=== PATIENT | female | born 1975 | race Two or more races ===

== ENCOUNTER 2025-01-08 13:13 | Inpatient (IN) | payer MEDICAID, OTHER ==
[~2025-01-08] VITALS: Ht 154.9 cm; Wt 68.0 kg
[2025-01-08] MEDS ORDERED: MAGNESIUM SULFATE/D5W 200 ML ONE (13:20)
[2025-01-08 13:44] LABS: PLATELET COUNT (AUTO) 323 K/uL (179-408); RED BLOOD CELL COUNT(AUTO) 4.35 MIL/uL (3.63-4.92); RED CELL DISTRIBUTION WIDTH 20.4 % (12.3-17.7); WHITE BLOOD COUNT (AUTO) 5.5 K/uL (3.8-11.8)
[2025-01-08] MEDS: MAGNESIUM SULFATE 2 GM in IV DEXTROSE 5% 100 ML IV ONE (13:44)
[2025-01-08 13:55] LABS: ASPARTATE AMINOTRANSFERASE 30 U/L (15-37); CREATININE 0.5 mg/dL (0.6-1.3); SODIUM SERUM 144 mmol/L (136-145); TOTAL PROTEIN, SERUM 6.9 g/dL (6.4-8.2); UREA NITROGEN, BLOOD 8 mg/dL (7-18)
[2025-01-08] MEDS: ALBUTEROL SULFATE 2.5 MG/3 ML NEBU NEB ONE (14:04)
[2025-01-08] MEDS: IPRATROPIUM BROMIDE 0.5 MG/2.5 ML NEBU NEB ONE (14:04)
[2025-01-08 14:05] VITALS: O2SAT 99
[2025-01-08] MEDS ORDERED: ALBUTEROL SULFATE 2.5 MG/3 ML NEBU ONE ×2 (14:06→19:30)
[2025-01-08] MEDS ORDERED: IPRATROPIUM BROMIDE 0.5 MG/2.5 ML NEBU ONE ×2 (14:06→19:30)
[2025-01-08 14:20] VITALS: O2SAT 100
[2025-01-08 14:21] LABS: BASOPHILS % (MANUAL) 1 % (0-2); EOSINOPHILS % (MANUAL) 14 % (0-8); LYMPHOCYTES % (MANUAL) 19 % (20-40); MONOCYTES % (MANUAL) 9 % (2-10); NEUTROPHILS % (MANUAL) 56 % (42-75); PLATELET ESTIMATE ADEQUATE
[2025-01-08] MEDS ORDERED: MAGNESIUM HYDROXIDE 30 ML LIQUID UDC PO PRN ×2 (15:15→20:00)
[2025-01-08] MEDS ORDERED: ONDANSETRON 4 MG/2 ML VIAL IV PRN ×2 (15:15→20:00)
[2025-01-08] MEDS ORDERED: ACETAMINOPHEN 325 MG TABLET PO PRN ×2 (15:15→20:00)
[2025-01-08 15:38] LABS: IRON, SERUM 19 ug/dL (50-175)
[2025-01-08] MEDS ORDERED: FLUT1DIS28 INH (15:40)
[2025-01-08] MEDS ORDERED: ALBU2.5V38 NEB (15:40)
[2025-01-08] MEDS ORDERED: PROM118S5 PO (15:41)
[2025-01-08] MEDS ORDERED: ALBU18HF2 IH (15:42)
[2025-01-08] MEDS ORDERED: LORA-656 PO (15:43)
[2025-01-08] MEDS ORDERED: TRIA15CR4 TOP (15:43)
[2025-01-08 19:00] VITALS: BP 155/94
[2025-01-08] MEDS: IPRATROPIUM BROMIDE 0.5 MG/2.5 ML NEBU NEB SCH ×2 (19:30→20:00)
[2025-01-08 19:31] VITALS: O2SAT 97
[2025-01-08] MEDS: ALBUTEROL SULFATE 2.5 MG/ 0.5 ML NEBU NEB SCH ×2 (19:31→20:00)
[2025-01-08 19:46] VITALS: O2SAT 100
[2025-01-08 21:04] VITALS: BP 130/72; TEMP 97.7; O2SAT 92
[2025-01-09] VITALS (15 sets, daily range): BP systolic 125–141; BP diastolic 63–78; TEMP 97.6–98.3; O2SAT 94–100
[2025-01-09] MEDS ORDERED: ACETAMINOPHEN 325 MG TABLET PO PRN (00:15)
[2025-01-09 06:38] LABS: PLATELET COUNT (AUTO) 325 K/uL (179-408); RED BLOOD CELL COUNT(AUTO) 4.32 MIL/uL (3.63-4.92); RED CELL DISTRIBUTION WIDTH 20.8 % (12.3-17.7); WHITE BLOOD COUNT (AUTO) 6.2 K/uL (3.8-11.8)
[2025-01-09 07:25] LABS: CREATININE 0.5 mg/dL (0.6-1.3); SODIUM SERUM 141 mmol/L (136-145); UREA NITROGEN, BLOOD 10 mg/dL (7-18)
[2025-01-09] MEDS: LORATADINE 10 MG TABLET PO SCH (09:36)
[2025-01-09] MEDS: GUAIFENESIN/DEXTROMETHORPHAN 5 ML UDC PO PRN (12:56)
[2025-01-09] MEDS: SOD FERRIC GLUC COMPLX/SUCROSE 125 MG in IV NORMAL SALINE 100 ML IV SCH (14:05)
[2025-01-10] VITALS (9 sets, daily range): BP systolic 128; BP diastolic 53; TEMP 97.6; O2SAT 94–100
[2025-01-10 07:16] LABS: PLATELET COUNT (AUTO) 254 K/uL (179-408); RED BLOOD CELL COUNT(AUTO) 4.22 MIL/uL (3.63-4.92); RED CELL DISTRIBUTION WIDTH 20.7 % (12.3-17.7); WHITE BLOOD COUNT (AUTO) 12.8 K/uL (3.8-11.8)
[2025-01-10 07:38] LABS: CREATININE 0.6 mg/dL (0.6-1.3); SODIUM SERUM 140.0 mmol/L (136-145); UREA NITROGEN, BLOOD 15.0 mg/dL (7-18)
[2025-01-10] MEDS ORDERED: METH4TAB3 PO (11:56)
[2025-01-10] MEDS ORDERED: FLUT1BLS IH (11:56)
[2025-01-10] MEDS ORDERED: FERR-56 PO (11:56)
[2025-01-10] MEDS ORDERED: ALBU8.5H8 INH (11:56)
== END 2025-01-10 14:15 | disposition home or self-care (01) | DRG 140 ==
LOC: ER 13:13 → MEDSURG3 20:35
DX: J44.1 Chronic obstructive pulmonary disease with (acute) exacerbation (principal); J96.01 Acute respiratory failure with hypoxia; J45.901 Unspecified asthma with (acute) exacerbation; D25.9 Leiomyoma of uterus, unspecified; D50.9 Iron deficiency anemia, unspecified; Z87.891 Personal history of nicotine dependence; Z88.0 Allergy status to penicillin; E87.6 Hypokalemia
CPT/HCPCS: 36415; 70030-TC; 71045; 83550; 83735; 84100; 85025; 86850; 86900; 86901; 94640; 94760; A4606; A4663; G0378; J2916; J2919; J3475; J3590